=== PATIENT | female | born 2000 | race Caucasian/White ===

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

== ENCOUNTER 2019-08-07 21:51 | Emergency (ER) | payer BC, SELFPAY ==
[2019-08-07 22:23] VITALS: BP 143/98; PULSE 81; RESP 16; TEMP 37.2; O2SAT 99; BMI 33.6
--- NOTE | 2019-08-07 22:30 | XR_ITS ---
PROCEDURE: XR ANKLE RT MIN 3V CLINICAL INDICATION: injured ankle Posttraumatic pain with swelling COMPARISON: No exams were available for comparison FINDINGS: Soft tissue swelling is present along the lateral malleolus. No fracture or dislocation. No lytic or blastic change. There is some soft tissue swelling anteriorly as well IMPRESSION: Soft tissue swelling otherwise negative Dictated by: Jaison Rogers MD 08/08/2019 06:35 Electronically signed by Jaison Rogers MD in [place] 08/08/2019 06:35
--- NOTE | 2019-08-07 22:54 | HMH.EDLOEX ---
ED Disposition Clinical Impression: Ankle sprain and strain Disposition: Home, Self-Care Condition on Discharge: Good Instructions: DI for Ankle Sprain Additional Instructions: no wt bearing and use nsaif and call dr hernadez on friday Referrals: Ilya Harman MD [Primary Care Provider] - Lizzy Hernadez DPM [Staff Physician] - - Critical Care Critical Care Time: No Attestation: On 08/07/19, the high probability of a clinically significant, sudden or life threatening deterioration of the following system(s) required my full and direct attention, intervention and personal management. The time I documented below is in addition to time spent performing reported procedures but includes the following listed in this critical care notation. Medical Decision Making - Medical Records Medical records reviewed: Yes: I reviewed the patient's medical records. - [place] Inquiry Pt receiving controlled substance: No Vital Signs: 08/07/19 22:23 Temperature 99.0 F Temperature Source Oral Pulse Rate [Left Radial] 81 Respiratory Rate 16 Blood Pressure [Right Arm] 143/98 H Blood Pressure Mean [Right Arm] 113 Blood Pressure Source [Right Arm] Automatic Cuff Blood Pressure Position [Right Arm] Sitting 02 Sat by Pulse Oximetry 99 Oxygen Delivery Method Room Air Orders (Tests/Meds): ORDERS Category Date Time Status Ankle XR -Right minimum 3 Views [XR ankle RT min 3V] Exams 08/07/19 22:30 Taken Stat - Radiology Data #1 Image(s): Ankle Image Reviewed: Yes I reviewed the patient's radiology image Preliminary Findings: Abnormal, No Fracture Seen Lower Extremity Injury HPI - General Chief Complaint: Extremity Injury, Lower Stated Complaint: AO 0530@2000 Injured R ankle Time Seen by Provider: 08/07/19 22:40 Mode of Arrival: Ambulatory Source of Information: Patient, Spouse, Medical Record Limitations: No Limitations Description of Symptoms (Recalled from ER Triage Doc. by RN): pt stated she rolled her right ankle getting in the pool. pt c/o right ankle pain and swelling present. - History of Present Illness HPI Narrative: acute rt ankle injury as noted - in pool slide complaint: ankle injury Onset (ago): hour(s) Injury: Right: ankle Type of Injury: hyperflexion Place: home Severity: moderate Context: other (sliding ) Associated symptoms: able to partially bear weight Other symptoms: none - Related Data Home Medications Medication Instructions Recorded Confirmed flu vac qs 2018(4 yr up)CD(PF) IM #1 ml 02/15/19 02/15/19 hepatitis A virus vaccine (PF) IM #1 ml 02/15/19 02/15/19 1,440 KB unit/mL intramuscular syringe Previous Rx's Medication Instructions Recorded levonorgestrel-ethinyl estradiol 1 tab PO DAILY #84 tab 11/17/18 0.1 mg-20 mcg tablet citalopram 10 mg tablet 10 mg PO DAILY #90 tab 02/11/19 norgestimate 0.25 mg-ethinyl 1 tab PO DAILY #84 tab 03/09/19 estradiol 35 mcg tablet oseltamivir 75 mg capsule 75 mg PO BID #10 cap 03/28/19 Allergies Allergy/AdvReac Type Severity Reaction Status Date / Time cefdinir Allergy Verified 02/15/19 15:46 [facility] History - Hepatitis A Screen Drug use history?: No High risk sexual behaviors?: No History of sexually transmitted infection?: No Currently employed?: No Childcare worker?: No Do you have indoor plumbing?: Yes Do you have electricity?: Yes Attestation statement:: This patient has been screened for Hepatitis A risk factors. I have reviewed the patient's past medical history: Yes 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: Reports:: Anxiety Laterality Cases: Left: Other Other Surgeries: Yes: Colonoscopy, Other Amputation: No Fractures: No - Social History Smoking Status: Never smoker Alcohol Intake: never Occupational Status: employed - Psychiatric History Pschychiatric History:: Reports:: Anxiety Family Hx:: No significant family history ROS Obtained: Yes All systems reviewed & no additional complaints - Co
[2019-08-07 23:12] VITALS: BP 137/81; PULSE 75; RESP 16; TEMP 37.3; O2SAT 98
== END 2019-08-07 23:13 | disposition home or self-care (01) ==
PROVIDERS: Emergency Provider Emergency Medicine; PCP Family Medicine
DX: S93.401A Sprain of unspecified ligament of right ankle, initial encounter (principal); X50.1XXA Overexertion from prolonged static or awkward postures, initial encounter; Y92.016 Swimming-pool in single-family (private) house or garden as the place of occurrence of the external cause; F41.9 Anxiety disorder, unspecified
CPT/HCPCS: 73610; 99282

== ENCOUNTER → 2020-11-21 14:53 | Outpatient (CLI) | payer OTHER, BC, SELFPAY | PROVIDERS: PCP Family Medicine; Visit Provider Nurse Practitioner | DX: U07.1 COVID-19 (principal) | CPT/HCPCS: C9803; U0003; U0005 ==

== ENCOUNTER 2022-01-02 18:54 | Emergency (ER) | payer OTHER, SELFPAY ==
[2022-01-02 19:50] VITALS: BP 128/81; PULSE 65; RESP 18; TEMP 36.7; O2SAT 100; BMI 22.3
--- NOTE | 2022-01-02 19:54 | EXP.UTC ---
Discharge Plan Disposition Patient Disposition: Home, Self-Care Condition: Good Prescriptions Prescriptions: New amoxicillin [amoxicillin] 500 mg tablet 500 mg PO TID 10 Days Qty: 30 0RF methylprednisolone 4 mg Tablets,Dose Pack 4 mg PO DIRECTED Qty: 21 0RF bxrkcpuhejchyjz-fbthljocy-DA [Bromfed DM] 2-30-10 mg/5 mL Syrup 5 ml PO Q6H PRN (Reason: Cough) Qty: 240 0RF No Action flu vac qs 2018(4 yr up)CD(PF) 60 mcg (15 mcg x 4)/0.5 mL syringe IM Qty: 1 hepatitis A virus vaccine (PF) 1,440 KB unit/mL syringe IM Qty: 1 oseltamivir [Tamiflu] 75 mg capsule 75 mg PO BID Qty: 10 0RF levonorgestrel-ethinyl estrad [Larissia] 0.1-20 mg-mcg tablet 1 tab PO DAILY Qty: 84 4RF citalopram 10 mg tablet 10 mg PO DAILY Qty: 90 3RF nitrofurantoin monohyd/m-cryst [Macrobid] 100 mg capsule 100 mg PO BID 30 Days Qty: 60 0RF Rx Instructions: must administer with a meal/food phenazopyridine [Pyridium] 100 mg tablet 100 mg PO TID 3 Days Qty: 9 0RF norgestimate-ethinyl estradiol [Sprintec (28)] 0.25-35 mg-mcg tablet See Rx Instructions .ROUTE .COMPLEX Qty: 84 3RF Dose Instruction: TAKE 1 TABLET BY MOUTH EVERY DAY Rx Instructions: TAKE 1 TABLET BY MOUTH EVERY DAY Referrals Follow up/Referrals: Brooke Jay APRN [Primary Care Provider] - See instructions Activity Restrictions/Add. Instructions Additional Instructions/Restrictions: Drink plenty of fluids. Take tylenol or ibuprofen for pain or fever. Take the medications as directed. Follow up with your regular doctor. GO TO THE ER FOR ANY WORSENING SYMPTOMS Clinical Impressions Clinical Impression: Otitis media, Sinusitis Instructions Patient Instructions: Sinusitis, Middle Ear Infection, DI for Sinusitis Discharge ED [place] [facility] [place] General Stated complaint: LEFT EAR ACHE, RUNNY NOSE Mode of Arrival: Ambulatory Source of Information: Patient Limitations: No Limitations Time Seen by Provider: 01/02/22 19:54 Description of Symptoms (Recalled from Triage Doc. by RN): pt c/o left ear pain and sinus pain x2 days HEENT Symptoms (Recalled from RN notes): Yes Resp Symptoms (Recalled from RN notes): No Skin Symptoms (Recalled from RN notes): No MS Symptoms (Recalled from RN notes): No Functional Status (Recalled from RN notes): na History of Present Illness Provider Complaint: She states that she has had left ear pain, sore throat and sinus congestion for the past 2 days. Related Data Home Medications Medication Instructions Recorded Confirmed flu vac qs 2018(4 yr up)CD(PF) 60 IM #1 mL 02/15/19 02/15/19 mcg(15 mcgx4)/0.5 mL IM syringe hepatitis A virus vaccine (PF) IM #1 mL 02/15/19 02/15/19 1,440 KB unit/mL intramuscular syringe Previous Rx's Medication Instructions Recorded levonorgestrel-ethinyl estradiol 1 tab PO DAILY #84 tabs 11/17/18 0.1 mg-20 mcg tablet (Larissia) citalopram 10 mg tablet 10 mg PO DAILY #90 tabs 02/11/19 oseltamivir 75 mg capsule (Tamiflu) 75 mg PO BID positive influenza B 03/28/19 #10 caps nitrofurantoin 100 mg PO BID 30 days #60 caps 09/06/19 monohydrate/macrocrystals 100 mg capsule (Macrobid) phenazopyridine 100 mg tablet 100 mg PO TID 3 days #9 tabs 09/08/19 (Pyridium) norgestimate 0.25 mg-ethinyl See Rx Instructions .Route 12/25/20 estradiol 35 mcg tablet (Sprintec .COMPLEX #84 tabs (28)) amoxicillin 500 mg tablet 500 mg PO TID 10 days #30 tabs 01/02/22 lpwbspxkjivcvzk-mvbizoadkiztflg-RQ 5 ml PO Q6H PRN Cough #240 mL 01/02/22 2 mg-30 mg-10 mg/5 mL oral syrup (Bromfed DM) methylprednisolone 4 mg tablets in 4 mg PO DIRECTED #21 tabs 01/02/22 a dose pack Allergies Allergy/AdvReac Type Severity Reaction Status Date / Time cefdinir Allergy Verified 02/15/19 15:46 Worker's Comp Is this a Worker's Comp case?: No PFSH PFSH Social History (Reviewed 01/02/22 @ 21:04 by Prince Gordillo,
[2022-01-02 20:07] VITALS: BP 121/70; PULSE 68; RESP 17; TEMP 36.7; O2SAT 99
== END 2022-01-02 20:07 | disposition home or self-care (01) ==
PROVIDERS: Emergency Provider Nurse Practitioner Family; PCP Nurse Practitioner
DX: H66.90 Otitis media, unspecified, unspecified ear (principal); J32.9 Chronic sinusitis, unspecified
CPT/HCPCS: 99212; G0463

== ENCOUNTER → 2022-07-16 09:47 | Outpatient (POV) | payer OTHER, SELFPAY | PROVIDERS: Visit Provider Dermatology | DX: Z00.00 Encounter for general adult medical examination without abnormal findings (principal) ==

== ENCOUNTER 2023-02-01 07:12 | Emergency (ER) | payer OTHER, SELFPAY ==
[2023-02-01 07:14] VITALS: BP 119/85; PULSE 100; RESP 15; TEMP 36.9; O2SAT 100; BMI 21.4
[2023-02-01 07:30] VITALS: BP 134/90; PULSE 96; O2SAT 100
--- NOTE | 2023-02-01 07:33 | HMH.EDGENADL ---
Discharge Plan Disposition Patient Disposition: Home, Self-Care Prescriptions Prescriptions: New ondansetron 4 mg tablet,disintegrating 4 mg PO Q6H PRN (Reason: nausea and vomiting) Qty: 10 0RF metoclopramide HCl [Reglan] 10 mg tablet 10 mg PO Q6H PRN (Reason: nausea and vomiting) Qty: 20 0RF No Action flu vac qs 2018(4 yr up)CD(PF) 60 mcg (15 mcg x 4)/0.5 mL syringe IM Qty: 1 hepatitis A virus vaccine (PF) 1,440 KB unit/mL syringe IM Qty: 1 oseltamivir [Tamiflu] 75 mg capsule 75 mg PO BID Qty: 10 0RF levonorgestrel-ethinyl estrad [Larissia] 0.1-20 mg-mcg tablet 1 tab PO DAILY Qty: 84 4RF citalopram 10 mg tablet 10 mg PO DAILY Qty: 90 3RF nitrofurantoin monohyd/m-cryst [Macrobid] 100 mg capsule 100 mg PO BID 30 Days Qty: 60 0RF Rx Instructions: must administer with a meal/food phenazopyridine [Pyridium] 100 mg tablet 100 mg PO TID 3 Days Qty: 9 0RF norgestimate-ethinyl estradiol [Sprintec (28)] 0.25-35 mg-mcg tablet See Rx Instructions .ROUTE .COMPLEX Qty: 84 3RF Dose Instruction: TAKE 1 TABLET BY MOUTH EVERY DAY Rx Instructions: TAKE 1 TABLET BY MOUTH EVERY DAY cephalexin 500 mg capsule 500 mg PO TID 10 Days Qty: 30 0RF amoxicillin [amoxicillin] 500 mg tablet 500 mg PO TID 10 Days Qty: 30 0RF methylprednisolone 4 mg Tablets,Dose Pack 4 mg PO DIRECTED Qty: 21 0RF hjnqqwfqglvsoig-sbjknvbou-BE [Bromfed DM] 2-30-10 mg/5 mL Syrup 5 ml PO Q6H PRN (Reason: Cough) Qty: 240 0RF Referrals Follow up/Referrals: Provider,Referral, MD [Primary Care Provider] - See instructions Activity Restrictions/Add. Instructions Additional Instructions/Restrictions: Reglan or Zofran every 6 hours as needed for nausea and vomiting. Start with Reglan, if you are unable to keep it down and vomited up, you can place Zofran under your tongue. Call your family doctor to establish care for this visit to the emergency department and schedule follow-up within 48 hours to ensure improvement. If you have any worsening of your condition or any other concerning signs or symptoms, return to the emergency department or your primary care doctor for further evaluation. Clinical Impressions Clinical Impression: Hyperemesis gravidarum Instructions Patient Instructions: DI for Acute Abdominal Pain Discharge ED Provider: Jose Bravo General Adult HPI General Chief complaint: Abdominal Pain Stated complaint: abd pain Time Seen by Provider: 02/01/23 07:17 Mode of Arrival: Ambulatory Source of Information: Patient Limitations: No Limitations Description of Symptoms (Recalled from ER Triage Doc. by RN): 22 yo F presents with generalized abd pain. pt reports that she is 10 weeks , 1 prior live . pt reports pain began last night. vomitting yellow bile. History of Present Illness HPI narrative: 22-year-old G2, P1 female with history of previous hemorrhage necessitating transfusion with resultant hematologic antibodies who is currently 10 weeks presenting with abdominal pain and vomiting. Patient states that she has been vomiting since yesterday evening, 01/31. Gotten worse today, she is vomiting yellow, frothy vomit. No blood in her vomit. She has had 1 episode of diarrhea this morning. Having associated abdominal pain and bloating. No fevers or chills, dysuria hematuria, frequency urgency, blood in her stool, rash, vaginal discharge, bleeding, rashes of fluid, or any other concerns. Has not taken any medications for intervention. Related Data Home Medications Medication Instructions Recorded Confirmed flu vac qs 2018(4 yr up)CD(PF) 60 IM #1 mL 02/15/19 02/15/19 mcg(15 mcgx4)/0.5 mL IM syringe hepatitis A virus vaccine (PF) IM #1 mL 02/15/19 02/15/19 1,440 KB unit/mL intramuscular syringe Previous Rx's Medication Instructions Recorded levonorgestrel-ethinyl estradiol 1 tab PO DAILY #84 tabs
[2023-02-01 07:37] LABS: Microscopic, Urine URINE MICROSCOPIC (MICROSCOPIC)
[2023-02-01 07:44] LABS: Basophils % 0.2 % (0.1-2.0); Eosinophils # 0.1 K/mm3 (0.0-0.4); Eosinophils % 0.4 % (0.1-12.0); Hematocrit 43.7 % (37.0-47.0); Hemoglobin 15.6 g/dL (12.2-16.2); Lymphocytes # 1.6 K/mm3 (0.7-4.5); Lymphocytes % 14.1 % (10-50); Mean Corpuscular HGB Conc 35.7 g/dL (31.8-35.4); Mean Corpuscular Hemoglobin 31.9 pg (27.0-31.2); Mean Corpuscular Volume 89.5 fl (81-99); Mean Platelet Volume 7.6 fl (7.4-10.4); Monocytes # 0.3 K/mm3 (0.1-1.0); Monocytes % 2.5 % (1.7-9.3); Neutrophils # 9.2 K/mm3 (1.8-7.8); Neutrophils % 82.8 % (37.0-80.0); Platelet Count 228 K/mm3 (142-424); Red Blood Count 4.88 M/mm3 (4.20-5.40); Red Cell Distribution Width 13.6 % (11.5-17.5); White Blood Count 11.2 K/mm3 (4.8-10.8)
[2023-02-01 07:47] LABS: Appearance,Urine SL CLOUDY (Clear); Bilirubin,Urine Negative (Negative); Blood, Urine Negative (Negative); Color,Urine YELLOW (Yellow); Glucose,Urine (UA) Negative (Negative); Ketones,Urine Negative (Negative); Leukocyte Esterase,Urine Negative (Negative); Nitrate,Urine Negative (Negative); PH,Urine 5.5 (5.0-8.5); Protein,Urine TRACE (Negative); Specific Gravity, Urine >= 1.030 (1.005-1.030); Urobilinogen,Urine 0.2 EU/dl (0.2)
[2023-02-01 07:49] LABS: Lipase 37 U/L (23-300)
[2023-02-01 07:51] LABS: Alanine Aminotransferase 19 U/L (12-78); Albumin Level 4.6 g/dl (3.5-5.0); Albumin/Globulin Ratio 1.4 (1.1-1.8); Alkaline Phosphatase 84 U/L (38-126); Anion Gap 13.2 mEq/L (5-15); Aspartate Amino Transferase 30 U/L (14-36); Bilirubin,Total 2.2 mg/dl (0.2-1.3); Blood Urea Nitrogen 8 mg/dl (7-17); Carbon Dioxide 25 mmol/L (22.0-30.0); Chloride 101 mmol/L (98-107); Creatinine Clearance Estimated 157 mL/min (50-200); Estimated Glomerular Filt Rate 153 ml/min (>60); GFR (African American) 185 ML/MIN (>60); Globulin 3.3 g/dL (1.3-3.2); Glucose 107 mg/dl (74-100); Potassium 4.2 mmoL/L (3.5-5.1); Sodium 135 mmol/L (136-145); Total Protein,Serum 7.9 g/dl (6.3-8.2)
[2023-02-01 08:00] VITALS: BP 116/79; PULSE 88; O2SAT 100
[2023-02-01 08:02] LABS: Squamous Epithelial Cell,Urine Occasional #/hpf (0-5); WBC,Urine Occasional #/hpf (0-3)
[2023-02-01 08:30] VITALS: BP 139/100; PULSE 90; O2SAT 99
[2023-02-01 08:46] VITALS: BP 115/78; PULSE 90; RESP 16; TEMP 36.9; O2SAT 100
== END 2023-02-01 08:47 | disposition home or self-care (01) ==
PROVIDERS: Emergency Provider Emergency Medicine
DX: O21.0 Mild hyperemesis gravidarum (principal); R10.9 Unspecified abdominal pain; Z3A.10 10 weeks gestation of pregnancy
CPT/HCPCS: 80053; 81001; 83690; 84702; 85025; 96361; 96374; 99284

== ENCOUNTER 2023-02-12 09:21 | Emergency (ER) | payer OTHER, SELFPAY ==
[2023-02-12 09:25] VITALS: BP 122/68; PULSE 106; RESP 18; TEMP 37.1; O2SAT 100; BMI 21.6
--- NOTE | 2023-02-12 09:35 | EXP.UTC ---
Discharge Plan Disposition Patient Disposition: Home, Self-Care Condition: Good Prescriptions Prescriptions: No Action 1 mg Tablet 1 tab PO DAILY Referrals Follow up/Referrals: Provider,Referral, MD [Primary Care Provider] - See instructions Activity Restrictions/Add. Instructions Additional Instructions/Restrictions: Drink plenty of fluids. Take tylenol for pain or fever. Follow up with your regular doctor. 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 Clinical Impressions Clinical Impression: COVID-19 Stand Alone Forms Stand Alone Forms: Work/School Release Instructions Patient Instructions: Coronavirus Disease 2019, Preventing the Spread of Coronavirus Discharge Instructions Discharge ED Provider: Prince Gordillo [facility] [place] HPI General Stated complaint: fever, chills, body aches, x 2 weeks Time Seen by Provider: 02/12/23 09:35 History of Present Illness Provider Complaint: She states that for the past 2 weeks she has had chills, low grade fever, and body aches. She is 11 weeks . She denies any congestion. She did have a sore throat at first when her symptoms started. She took a round of amoxicillin when her symptoms first started, but this did not help. Related Data Home Medications Medication Instructions Recorded Confirmed yzttnvad-ghi-Pc-FA 1 mg 1 tab PO DAILY 02/12/23 02/12/23 tablet Allergies Allergy/AdvReac Type Severity Reaction Status Date / Time cefdinir Allergy Verified 02/12/23 09:45 [facility] Disclaimer: The information contained in this section may have been updated after the patient was seen, as this information can be updated by other users. 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 (Updated 02/12/23 @ 10:28 by Prince Gordillo APRN) Sore throat Social History Smoking Status: Never smoker alcohol intake: never current occupational status: employed Travel in the last 8 weeks: None ROS Obtained: Yes All systems reviewed & no additional complaints except as documented Constitutional Constitutional: Reports chills and Reports fever(s) Eyes Eyes: Denies eye discharge ENT Ears, Nose, Mouth, and Throat: Reports as per HPI Cardiovascular Cardiovascular: Denies chest pain Respiratory Respiratory: Denies chest congestion and Reports cough Gastrointestinal Gastrointestingal: Reports nausea; Denies abdominal pain, constipation, cramping, diarrhea or vomiting Musculoskeletal Musculoskeletal: Denies arthralgias Integumentary/Breasts Skin/Breast: Denies rash Neurologic Neurologic: Denies paresthesias Physical Exam General General appearance: alert and in no apparent distress Head Head exam: atraumatic, normocephalic and normal inspection Eye Eye exam: Present normal appearance, PERRL and EOMI ENT ENT exam: Present normal exam, normal oropharynx, mucous membranes moist, TM's normal bilaterally and normal external ear exam Neck Neck exam: Present normal inspection, full ROM and trachea midline; Absent meningismus or lymphadenopathy Chest Chest inspection: Present normal inspection and symmetric chest wall rise; Absent tenderness Respiratory Respiratory exam: Present normal lung sounds bilaterally; Absent respiratory distress Cardiovascular Cardiovascular exam: Present regular rate and normal rhythm; Absent JVD Abdominal Exam Abdominal exam: Present soft and normal bowel sounds; Absent distention, tenderness or guarding Extremities Exam Extremities exam: Present normal inspection, full ROM and normal capillary refill; Absent calf tenderness Back Exam Back exam: Present normal inspection; Absent tenderness Neurological Exam Neurological exam: Present alert and oriented X3 Psychiatric Psychiatric exam: Present normal affect and normal mood Skin Skin exam: Present warm, dry, intact and normal color Lymphatic Lymphatic Findings: no adenopathy Medical Deci
[2023-02-12 09:40] LABS: Influenza A, PCR Not Detected (NotDetected); Influenza B, PCR Not Detected (NotDetected)
[2023-02-12 09:47] LABS: UTC Strep Screen (Rapid) Negative (Negative)
[2023-02-12 10:24] LABS: Coronavirus 19, PCR Detected (NotDetected)
[2023-02-12 10:30] VITALS: BP 122/68; PULSE 106; RESP 18; TEMP 37.1; O2SAT 100
[2023-02-12 10:34] LABS: Apearance,Urine Clear (Clear); Color,Urine Yellow (Yellow); Protein,Urine Negative (Negative); Specific Gravity, Urine 1.015 (1.005-1.030)
[2023-02-12 10:35] LABS: Glucose,Urine (UA) Negative (Negative); Ketones,Urine Negative (Negative)
[2023-02-12 10:37] LABS: Bilirubin,Urine Negative (Negative); Blood, Urine 1+ (Negative); UTC Leukocyte Esterase,Urine Negative (Negative); UTC Nitrate,Urine Negative (Negative); Urobilinogen,Urine 0.2 EU/dl (0.2)
[2023-02-12 10:50] LABS: Chloride 101 mmol/L (98-107)
[2023-02-12 10:51] LABS: Basophils % 0.2 % (0.1-2.0); Eosinophils % 0.4 % (0.1-12.0); Hematocrit 36.8 % (37.0-47.0); Hemoglobin 13.1 g/dL (12.2-16.2); Lymphocytes # 0.8 K/mm3 (0.7-4.5); Lymphocytes % 16.1 % (10-50); Mean Corpuscular HGB Conc 35.6 g/dL (31.8-35.4); Mean Corpuscular Hemoglobin 32.1 pg (27.0-31.2); Mean Corpuscular Volume 90.2 fl (81-99); Mean Platelet Volume 7.4 fl (7.4-10.4); Monocytes # 0.2 K/mm3 (0.1-1.0); Monocytes % 3.7 % (1.7-9.3); Neutrophils # 3.9 K/mm3 (1.8-7.8); Neutrophils % 79.6 % (37.0-80.0); Platelet Count 219 K/mm3 (142-424); Potassium 3.7 mmoL/L (3.5-5.1); Red Blood Count 4.08 M/mm3 (4.20-5.40); Red Cell Distribution Width 14.2 % (11.5-17.5); Sodium 133 mmol/L (136-145); White Blood Count 4.9 K/mm3 (4.8-10.8)
[2023-02-12 10:53] LABS: Blood Urea Nitrogen 4 mg/dl (7-17); Creatinine Clearance Estimated 197 mL/min (50-200); Estimated Glomerular Filt Rate 198 ml/min (>60); GFR (African American) 239 ML/MIN (>60)
[2023-02-12 10:54] LABS: Anion Gap 10.7 mEq/L (5-15); Calcium 8.6 mg/dl (8.4-10.2); Carbon Dioxide 25 mmol/L (22.0-30.0); Glucose 104 mg/dl (74-100); Monoscreen (Rapid) Negative (Negative)
== END 2023-02-12 10:30 | disposition home or self-care (01) ==
PROVIDERS: Emergency Provider Nurse Practitioner Family
DX: O98.511 Other viral diseases complicating pregnancy, first trimester (principal); U07.1 COVID-19; Z3A.11 11 weeks gestation of pregnancy; R50.9 Fever, unspecified; R05.9 Cough, unspecified; R11.0 Nausea; M79.18 Myalgia, other site
CPT/HCPCS: 80048; 81003; 85025; 86318; 87086; 87636; 87880; 99212; 99213; G0463

== ENCOUNTER 2024-01-07 14:11 | Outpatient (CLI) | payer OTHER, SELFPAY ==
[2024-01-07 14:32] LABS: Basophils # 0.1 K/mm3 (0-0.2); Basophils % 1.2 % (0.1-2.0); Eosinophils # 0.1 K/mm3 (0.0-0.4); Eosinophils % 1.5 % (0.1-12.0); Hemoglobin 13.8 g/dL (12.2-16.2); Lymphocytes # 2.5 K/mm3 (0.7-4.5); Lymphocytes % 45.9 % (10-50); Mean Corpuscular HGB Conc 35.5 g/dL (31.8-35.4); Mean Corpuscular Hemoglobin 30.8 pg (27.0-31.2); Mean Corpuscular Volume 86.9 fl (81-99); Mean Platelet Volume 7.7 fl (7.4-10.4); Monocytes # 0.2 K/mm3 (0.1-1.0); Monocytes % 4.2 % (1.7-9.3); Neutrophils # 2.5 K/mm3 (1.8-7.8); Neutrophils % 47.2 % (37.0-80.0); Platelet Count 220 K/mm3 (142-424); Red Blood Count 4.48 M/mm3 (4.20-5.40); Red Cell Distribution Width 13.4 % (11.5-17.5); White Blood Count 5.3 K/mm3 (4.8-10.8)
[2024-01-07 14:51] LABS: D-Dimer 0.44 ug/mL (0.0-0.5)
[2024-01-07 15:03] LABS: Anion Gap 9.7 mEq/L (5-15); Blood Urea Nitrogen 11 mg/dl (7-17); Calcium 9.2 mg/dl (8.4-10.2); Carbon Dioxide 29 mmol/L (22.0-30.0); Chloride 105 mmol/L (98-107); Estimated Glomerular Filt Rate 103 ml/min (>60); GFR (African American) 124 ML/MIN (>60); Glucose 80 mg/dl (74-100); Potassium 3.7 mmoL/L (3.5-5.1); Sodium 140 mmol/L (136-145)
[2024-01-07 15:34] LABS: Thyroid Stimulating Hormone 1.04 uIU/mL (0.465-4.68)
[2024-01-07 18:05] LABS: Iron 78 ug/dL (37-170)
[2024-01-07 18:15] LABS: Total Iron Binding Capacity 420 ug/dL (265-497)
[2024-01-07 18:42] LABS: Ferritin 23.1 ng/ml (6.24-137)
[2024-01-09 17:33] LABS: Antinuclear Antibodies, IFA Negative (.)
[2024-01-12 10:10] LABS: Dopamine, Plasma < 30 pg/mL (0-48); Epinephrine, Plasma < 15 pg/mL (0-62); Norepinephrine, Plasma 446 pg/mL (0-874)
== END 2024-01-07 23:59 | disposition home or self-care (01) ==
LOC: LAB 14:12
PROVIDERS: PCP Internal Medicine; Visit Provider Internal Medicine
DX: I47.11 Inappropriate sinus tachycardia, so stated (principal); R06.00 Dyspnea, unspecified; R42 Dizziness and giddiness
CPT/HCPCS: 80048; 82384; 82728; 83520; 83540; 83550; 84439; 84443; 84540; 85025; 85378; 86038; 93270

== ENCOUNTER 2024-01-09 06:54 | Outpatient (CLI) | payer OTHER, SELFPAY | END 2024-01-09 23:59 | disposition home or self-care (01) | LOC: LAB 06:55 | PROVIDERS: PCP Internal Medicine; Visit Provider Internal Medicine | DX: I47.11 Inappropriate sinus tachycardia, so stated (principal); R06.00 Dyspnea, unspecified; R42 Dizziness and giddiness | CPT/HCPCS: 36415; 82533 ==

== ENCOUNTER 2024-01-15 13:25 | Outpatient (CLI) | payer OTHER, SELFPAY ==
--- NOTE | 2024-01-15 13:47 | CA_ITS ---
APPROVED REPORT EXAM: Comprehensive 2D, Doppler, and color-flow Echocardiogram District Director: Jaclyn Vance CRT Ht: 5 ft 4 in Wt: 135lbs BSA: 1.66 BP: 118/84 mmHg Indications: SVT, SOB, DIZZINESS Echo Enhancing Agent Indication: Rule out Shunt Agent(s) / Amount(s) Used: Agitated Saline 5 cc Comments: B/S ORDERED 2D Dimensions LA Volume 42.10 mL LA Volume Index 24.80 mL/m2 (M/F) 16-34 M-Mode Dimensions RVDd 1.86 cm (0.9-2.6) LA Diam 2.61 cm (1.9-4.0) LVDd 4.44 cm (3.5-5.7) LVDs 2.72 cm (3.5-5.7) IVSd 0.98 cm (0.6-1.1) PWd 0.71 cm (0.6-1.1) EF (Teich) 69.30% FS 38.70% EDV (Teich) 89.60 mL TAPSE 2.25 (<1.7) ESV (Teich) 27.50 mL LV Diastology E Decel Time 217 (160-240 msec) E/A Ratio 1.34 MED A' 8.40 cm/s LAT A' 9.40 cm/s Aortic Valve AO Peak GR. 8.50 mmHg Mitral Valve MV A Velocity 69.0 (40-130 cm/s) E/A Ratio 1.34 Pulmonary Valve PV Peak Velocity 152.0 (50-150 cm/s) Tricuspid Valve TR P. Velocity 214.00 cm/s RAP Estimate 10.00 mmHg RVSP 28.30 mmHg Left Ventricle The left ventricle is normal size. The left ventricular systolic function is normal. The left ventricular ejection fraction is within the normal range. There is normal left ventricular wall thickness. There is normal LV segmental wall motion. The left ventricular diastolic function is normal. LVEF is 55%. Right Ventricle The right ventricle is normal size. The right ventricular systolic function is normal. Atria The left atrium size is normal. The right atrium size is normal. There is no Doppler evidence of interatrial shunt. Agitated saline administration demonstrates no evidence of interatrial shunt. Aortic Valve The aortic valve opens well. There is no aortic valvular stenosis. No aortic regurgitation is present. Mitral Valve The mitral valve is normal in structure. No evidence of mitral valve stenosis. Trace mitral regurgitation. Tricuspid Valve Tricuspid valve is grossly normal in structure and function. Trace tricuspid regurgitation. RVSP is normal. Pulmonic Valve The pulmonary valve is normal in structure. Trace pulmonic regurgitation. Great Vessels The aortic root is normal in size. IVC is normal in size and collapses >50% with inspiration. Pericardium There is no pericardial effusion. Other Information Study Quality: Adequate Conclusion Normal biventricular systolic function. No significant valvular stenosis or regurgitation. No Doppler evidence of interatrial shunt. Agitated saline administration demonstrates no evidence of interatrial shunt. Electronically signed by : Paula Gandara MD 01/18/2024 21:35:04
== END 2024-01-15 23:59 | disposition home or self-care (01) ==
LOC: RT 13:25
PROVIDERS: PCP Internal Medicine; Visit Provider Internal Medicine
DX: R06.00 Dyspnea, unspecified (principal); I47.11 Inappropriate sinus tachycardia, so stated
CPT/HCPCS: 93306

== ENCOUNTER 2024-01-29 13:37 | Outpatient (CLI) | payer OTHER, SELFPAY ==
[2024-01-29 13:02] LABS: Adenovirus,PCR Not Detected (NotDetected); Bordetella Pertussis Not Detected (NotDetected); Chlamydophila Pneumoniae, PCR Not Detected (NotDetected); Coronavirus 19, PCR Not Detected (NotDetected); Coronavirus 229E Not Detected (NotDetected); Coronavirus NL63 Not Detected (NotDetected); Coronavirus OC43 Not Detected (NotDetected); Coronovirus HKU1,PCR Not Detected (NotDetected); Human Metapneumovirus Not Detected (NotDetected); Influenza A, PCR Not Detected (NotDetected); Influenza AH1, 2009 Not Detected (NotDetected); Influenza AH1, PCR Not Detected (NotDetected); Influenza AH3,PCR Not Detected (NotDetected); Influenza B, PCR Not Detected (NotDetected); Mycoplasma Pneumoniae, PCR Not Detected (NotDetected); Parainfluenza 1, PCR Not Detected (NotDetected); Parainfluenza 2, PCR Not Detected (NotDetected); Parainfluenza 3, PCR Not Detected (NotDetected); Parainfluenza 4, PCR Not Detected (NotDetected); Respiratory Syncytial Virus Not Detected (NotDetected); Rhinovirus/Enterovirus Not Detected (NotDetected)
[2024-01-29 13:25] LABS: Basophils # 0.1 K/mm3 (0-0.2); Basophils % 1.1 % (0.1-2.0); Eosinophils # 0.3 K/mm3 (0.0-0.4); Eosinophils % 4.8 % (0.1-12.0); Hematocrit 40.7 % (37.0-47.0); Hemoglobin 13.8 g/dL (12.2-16.2); Lymphocytes # 2.6 K/mm3 (0.7-4.5); Lymphocytes % 45.5 % (10-50); Mean Corpuscular Hemoglobin 30.4 pg (27.0-31.2); Mean Corpuscular Volume 89.2 fl (81-99); Mean Platelet Volume 7.7 fl (7.4-10.4); Monocytes # 0.2 K/mm3 (0.1-1.0); Monocytes % 3.8 % (1.7-9.3); Neutrophils # 2.5 K/mm3 (1.8-7.8); Neutrophils % 44.8 % (37.0-80.0); Platelet Count 195 K/mm3 (142-424); Red Blood Count 4.56 M/mm3 (4.20-5.40); Red Cell Distribution Width 13.7 % (11.5-17.5); White Blood Count 5.7 K/mm3 (4.8-10.8)
== END 2024-01-29 23:59 | disposition home or self-care (01) ==
LOC: LAB.DROPOF 13:37
PROVIDERS: PCP Internal Medicine; Visit Provider Internal Medicine
DX: J98.8 Other specified respiratory disorders (principal)
CPT/HCPCS: 85025; 87633

== ENCOUNTER 2024-02-24 08:26 | Outpatient (CLI) | payer OTHER, SELFPAY ==
--- NOTE | 2024-02-24 08:30 | XR_ITS ---
FINAL REPORT CLINICAL HISTORY: Foot Pain, hit in between 4th & 5th digit on fireplace FINDINGS: Left foot Three views were obtained. There is an oblique, mildly displaced comminuted fracture of the fourth proximal phalanx. There is no dislocation. Fracture extends into the PIP joint. IMPRESSION: Fracture as above. Reviewed, Interpreted and Dictated by Semaj Sinha MD Transcribed by Vianey Nina Authenticated and [facility]
== END 2024-02-24 23:59 | disposition home or self-care (01) ==
LOC: RAD 08:27
PROVIDERS: PCP Internal Medicine; Visit Provider Podiatrist
DX: M79.672 Pain in left foot (principal)
CPT/HCPCS: 73630

== ENCOUNTER 2024-03-22 13:57 | Outpatient (CLI) | payer OTHER, SELFPAY ==
--- NOTE | 2024-03-22 14:00 | XR_ITS ---
FINAL REPORT CLINICAL HISTORY: fracture healing evaluation COMPARISON: 02/24/2024 FINDINGS: LEFT FOOT: 3 views of the left foot rupture of the fourth proximal phalanx, also seen on the prior exam of 02/24/2024. The fracture line remains evident without displacement. There is mild fracture healing, and minimal periosteal reaction. IMPRESSION: Mild fracture healing of the oblique fracture of the fourth proximal phalanx since the prior exam of 02/24/2024. Reviewed, Interpreted and Dictated by Semaj Sinha MD Transcribed by Kat Gonsales Authenticated and [facility]
== END 2024-03-22 23:59 | disposition home or self-care (01) ==
LOC: RAD 13:58
PROVIDERS: PCP Internal Medicine; Visit Provider Podiatrist
DX: S92.345A Nondisplaced fracture of fourth metatarsal bone, left foot, initial encounter for closed fracture (principal); S92.502A Displaced unspecified fracture of left lesser toe(s), initial encounter for closed fracture
CPT/HCPCS: 73630

== ENCOUNTER 2024-04-03 08:18 | Emergency (ER) | payer OTHER, SELFPAY ==
[2024-04-03 08:41] VITALS: BP 128/68; PULSE 93; RESP 18; TEMP 36.8; O2SAT 97; BMI 23.5
[2024-04-03 08:46] LABS: UTC Strep Screen (Rapid) Negative (Negative)
--- NOTE | 2024-04-03 08:52 | EXP.UTC ---
Discharge Plan Disposition Patient Disposition: Home, Self-Care Condition: Good Prescriptions Prescriptions: New amoxicillin 500 mg tablet 500 mg PO BID 10 Days Qty: 20 0RF No Action norgestimate-ethinyl estradiol [Sprintec (28)] 0.25-35 mg-mcg tablet 1 tab PO DAILY Patient Comments: TAKE 1 TABLET BY MOUTH ONCE DAILY Referrals Follow up/Referrals: Olegario Ahmadi, [Primary Care Provider] - See instructions Activity Restrictions/Add. Instructions Additional Instructions/Restrictions: Start antibiotic as soon as possible and be sure to take as ordered for full length of time even though he should start feeling better in 24-48 hours. Tylenol or Motrin as needed for pain or fever Encourage fluids, water, Gatorade, Powerade, Pedialyte if infant/toddler/child Warm compresses often helps when placed over ear Return immediately for new or worsening symptoms no noticeable improvement in 48-72 hours and in 10-14 days to ensure the ears are return to baseline. Follow-up with primary care Clinical Impressions Clinical Impression: Otitis media, Upper respiratory infection, viral Instructions Patient Instructions: DI for Viral Upper Respiratory Infection -- Adult, Middle Ear Infection Print Language Print Language: Egyptian Discharge ED Provider: Archana ([facility])Britany [facility] HPI General Stated complaint: Pain in R ear and throat Mode of Arrival: Ambulatory Source of Information: Patient Time Seen by Provider: 04/03/24 08:52 Description of Symptoms (Recalled from Triage Doc. by RN): EAR ACHE, SORE THROAT, DRAINAGE X3 DAYS HEENT Symptoms (Recalled from RN notes): Yes Resp Symptoms (Recalled from RN notes): No Skin Symptoms (Recalled from RN notes): No MS Symptoms (Recalled from RN notes): No Functional Status (Recalled from RN notes): WNL History of Present Illness Provider Complaint: 23-year-old female presents for right ear pain, sore throat, and drainage for 3 days. Related Data Home Medications ?Medication ?Instructions ?Recorded ?Confirmed norgestimate 0.25 mg-ethinyl 1 tab PO DAILY 01/07/24 04/03/24 estradiol 35 mcg tablet (Sprintec (28)) Previous Rx's ?Medication ?Instructions ?Recorded amoxicillin 500 mg tablet 500 mg PO BID 10 days #20 tabs 04/03/24 Allergies Allergy/AdvReac Type Severity Reaction Status Date / Time cefdinir Allergy Verified 03/23/24 08:52 Worker's Comp Is this a Worker's Comp case?: No [facility] Disclaimer: The information contained in this section may have been updated after the patient was seen, as this information can be updated by other users. 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) Smoking Status: Never smoker alcohol intake: never current occupational status: employed Travel in the last 8 weeks: None Have you lived/traveled outside US in past 30 days?: No Contact w/someone who lives/traveled outside US past 30 days?: No Exposure to someone with infectious disease in past 14 days?: No Do you have a fever (greater than 100.4 F or 38 C)?: No Have you tested positive for COVID-19: No Exposed to someone with COVID-19 in past 14 days?: No Do you have a sore throat?: Yes Do you have a cough?: No Do you have any weakness?: No Do you have any diarrhea?: No Are you experiencing any unusual bleeding?: No Do you have any muscle aches/pain?: No Do you have any abdominal pain?: No Are you experiencing loss of taste or smell?: No ROS Obtained: Yes Systems reviewed as appropriate & no additional complaints except as documented ENT Ears, Nose, Mouth, and Throat: Reports system reviewed and no additional complaints, except as documented, Reports as per HPI, Reports otalgia, Reports nasal discharge and Reports sore throat Physical Exam General General appearance: alert and in no apparent distress ENT ENT exam: Present normal oropharynx and mucous membranes moist Expanded ENT Exam TM/Canal exam: Right TM: erythema and loss of landmarks Respiratory Respiratory exam: Present normal lung sounds bilaterally Cardiovascular Cardiovascular exam: Present regular rate and normal rhythm Neurological Exam Neurological exam: Present alert and oriented X3 Skin Skin exam: Present warm and intact Lymphatic Lymphatic Findings: no adenopathy Medical Decision Making Medical Records Medical records reviewed: Yes I reviewed the patient's medical records. Screening: Per USPSTF and CDC recommendations, given the prevalence of disease in our region, it is our hospital?s policy to screen for HIV and viral Hepatitis for all patients aged 18 and over and those with ongoing risk factors. Francisco Inquiry Pt receiving controlled substance: No Vital Signs: 04/03/24 08:41 Temperature 98.2 F Temperature Source Oral Pulse Rate [Left Radial] 93 H Respiratory Rate 18 Blood Pressure [Left Arm] 128/68 Blood Pressure Mean [Left Arm] 88 02 Sat by Pulse Oximetry 97 Lab Data Lab results reviewed: Yes I reviewed the patient's lab results. Lab Results 04/03/24 08:38: Strep Scn Rapid Clinic Negative Orders (Tests/Meds): ORDERS Category Date Time Status Strep Screen Confirmation Stat Micro 04/03/24 08:38 Received
[2024-04-03 09:08] VITALS: BP 128/68; PULSE 93; RESP 18; TEMP 36.8
== END 2024-04-03 09:25 | disposition home or self-care (01) ==
PROVIDERS: Emergency Provider Nurse Practitioner Family; PCP Internal Medicine
DX: H66.91 Otitis media, unspecified, right ear (principal); J06.9 Acute upper respiratory infection, unspecified
CPT/HCPCS: 87880; 99213; G0381

== ENCOUNTER 2024-04-12 13:43 | Outpatient (CLI) | payer OTHER, SELFPAY ==
--- NOTE | 2024-04-12 13:45 | XR_ITS ---
FINAL REPORT CLINICAL HISTORY: Foot Pain COMPARISON: 03/22/2024 FINDINGS: LEFT FOOT Three views demonstrate a mildly displaced oblique fracture of the fourth proximal phalange, similar to the previous study allowing for differences in positioning. There is no evidence of intra-articular extension. IMPRESSION: Similar-appearing fourth proximal phalange fracture. Reviewed, Interpreted and Dictated by Alfa Gutiérrez MD Transcribed by Billie Lema Authenticated and . [facility]
== END 2024-04-12 23:59 | disposition home or self-care (01) ==
LOC: RAD 13:43
PROVIDERS: PCP Internal Medicine; Visit Provider Podiatrist
DX: M79.672 Pain in left foot (principal)
CPT/HCPCS: 73630

== ENCOUNTER 2024-12-07 04:02 | Emergency (ER) | payer OTHER, SELFPAY ==
--- OUTSIDE RECORDS SUMMARY | 2024-10-20 14:40 | XMS_ITS | Encounter Summary ---
[facility] [address] [place] [address] Care Team Providers Care Crab Backer Name Role Phone Olegario Ahmadi Primary Care Provider + Reason for Visit * Reason Comments annual Encounter Details Date Type Department Care Team (Late st Contact Info) Description 10/20/2024 2:40 PM EDT Office Visit [facility] OBGYN [address] [place] [address] Lauren Mcleod MD [address] [place] [address] Women's annual routine gynecological examination (Primary Dx); Encounter for contraceptive management, unspecified type Social History Tobacco Use Types Packs/Day Years Used Date Smoking Tobacco: Never Passive Smoke Exposure: Past Smokeless Tobacco: Never Tobacco Cessation:Counseling Given: Not Answered Alcohol Use Standard Drinks/Week Comments Never 0 (1 standard drink = 0.6 oz pur e alcohol) [facility] Utilities Answer Date Recorded In the past 12 months has [place], gas, oil, or water independenceIT threatened to shut off services in your home? No 08/27/2023 AUDIT-C Answer Date Recorded Q1: How often do you have a drink containing alcohol? Never 08/27/2023 Q2: How many drinks containi ng alcohol do you have on a typical day when you are drinking? Patient does not drink Q3: How often do you have si x or more drinks on one occasion? Never 08/27/2023 Overall Financial Resource Strain (CARDIA) Answe r Date Recorded How hard is it for you to pa y for the very basics like food, housing, medical care, and heating? Not hard at all 08/27/2023 [facility] of Occupat ional Health - Occupational Stress Questionnaire Answer Date Recorded Do you feel stress - tense, restless, nervous, or anxious, or unable to sleep at night because your mind is troubled all the time - these days? Not at all 08/27/2023 Exercise Vital Sign Answer Date Recorde d On average, how many days pe r week do you engage in moderate to strenuous exercise (like a brisk walk)? 3 days 08/27/2023 On average, how many minutes do you engage in exercise at this level? 20 min 08/27/2023 Hunger Vital Sign Answer Date Recorded Within the past 12 months, y ou worried that your food would run out before you got the money to buy more. Never true 08/27/19 24 Within the past 12 months, t he food you bought just didn't last and you didn't have money to get more. Never true 08/27/2023 PRAPARE - Transportation Answer Date Re corded In the past 12 months, has l ack of transportation kept you from medical appointments or from getting medications? No 08/08 In the past 12 months, has l ack of transportation kept you from meetings, work, or from getting things needed for daily living? No 08/27/2023 Robbins Depression Scale Answer Date Recorded Retired Robbins Depression Score 17 10/13/2023 Retired EPD Scale: Thought of Harming Self Unrec ognized value 10/13/2023 Abuse Screen Answer Date Recorded Feels Unsafe at Home or Work/School no 08/27/2023 Feels Threatened by Someone no 08/08 Does Anyone Try to Keep You From Having Contact with Others or Doing Things Outside Your Home? no 08/27/2023 Physical Signs of Abuse Present no 08/27/2023 Housing Stability Answer Date Recorded Current Living Arrangements home 08/08 Potentially Unsafe Housing Conditions none 08/27/2023 Family and Community Support Answer Ernesto e Recorded If for any reason you need h elp with day-to-day activities such as bathing, preparing meals, shopping, managing finances, etc., do you get the help you need? I don't need any help 08/27/2023 How often do you feel lonely or isolated from those around you? Never 08/27/2023 Employment Answer Date Recorded Do you want help finding or keeping work or a job? I do not need or want help 08/27/2023 Disabilities Answer Date Recorded Difficulty Concentrating, Remembering or Making Decisions no 08/27/2023 Difficulty Managing Errands Independently no 08/27/2023 Education Answer Date Recorded Do you want help with school or training? For example, starting or completing job training or getting a high school diploma, GED or equivalent No 08/27/2023 Preferred Language Wolof 08/27/2023 PHQ-2 Answer Date Recorded Retired PHQ-9: Brief Depression Severity Measure Score 0 08/27/2023 Education Answer Date Recorded What is the highest level of school you have completed or the highest degree you have received? 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 Gynecologic Annual Exam Note annual Subjective HPI Kaylynn Mcarthur is a 24 y.o. female who presents for annual well woman exam as a established patient. There were no changes to her medical or surgical history since her last visit.. Patient's last menstrual period was 10/04/2024 (approximate). Her periods occur every 25-35 days, lasting 5 days. The flow is light to moderate. She reports dysmenorrhea is mild occurring occasionally. Marital Status: . She is sexually active. She has not had new partners.. STD testing recommendations have been explained to the patient and she does not desire STD testing. 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 Results: negative. HPV: not done. Last Completed Pap Smear Awaiting Completion PAP SMEAR (Every 3 Years) Order placed this encounter 10/20/2024 Order placed for LIQUID-BASED PAP SMEAR WITH HPV GENOTYPING REGARDLESS OF INTERPRETATION(ELSY,COR,MAD) by Lauren Mcleod MD 10/15/2023 LIQUID-BASED PAP SMEAR WITH HPV GENOTYPING IF ASCUS (ELSY,COR,MAD) 08/14/2022 LIQUID-BASED PAP SMEAR WITH HPV GENOTYPING IF ASCUS (ELSY,COR,MAD) 12/01/2020 Pap IG, Ct-Ng, Rfx HPV ASCU History of abnormal Pap smear: no Gardasil status:completed Family history of uterine, colon, breast, or ovarian cancer: no Performs monthly Self-Breast Exam: yes Exercises Regularly:yes Feelings of Anxiety or Depression: no Tobacco Usage?: No Current Outpatient Medications: norgestimate-ethinyl estradiol (ORTHO-CYCLEN) 0.25-35 MG-MCG per tablet, Take 1 tablet by mouth Daily., Disp: 84 tablet, Rfl: 4 Patient is requesting refills of OCP. OB History 2 Para 2 Term 2 0 AB 0 Living 2 SAB 0 IAB 0 Ectopic 0 Molar 0 Multiple 0 Live Births 2 Obstetric Comments #1 Vaginal wall hematoma-bleeding- had blood transfusion post hematoma evacuation Fob #1 - #1 and #2 Health Maintenance Topic Date Due ANNUAL PHYSICAL Never done Annual Gynecologic Pelvic and Breast Exam 08/16/2023 COVID-19 Vaccine ( season) 2023 INFLUENZA VACCINE 12/08/2024 PAP SMEAR 10/14/2026 TDAP/TD VACCINES (3 - Td or Tdap) 06/09/2033 HEPATITIS C SCREENING Completed HPV VACCINES Completed Pneumococcal Vaccine 0-49 Aged Out CHLAMYDIA SCREENING Discontinued Past 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: Diagnosis Date History of transfusion 06-27-22 Post hemorrhage Maternal atypical antibody complicating , unspecified trimester, 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 Review of Systems Constitutional: Negative. HENT: Negative. Eyes: Negative. Respiratory: Negative. Cardiovascular: Negative. Gastrointestinal: Negative. Endocrine: Negative. Genitourinary: Negative. Musculoskeletal: Negative. Skin: Negative. Allergic/Immunologic: Negative. Neurological: Positive for headache. Hematological: Negative. Psychiatric/Behavioral: Negative. I have reviewed and agree with the HPI, ROS, and historical information as entered above. Lauren Mcleod MD Objective BP 118/80 Ht 162.6 cm (64 ) Wt 60.3 kg (133 lb) LMP 10/04/2024 (Approximate) BMI 22.83 kg/m?? Physical Exam Vitals and nursing note reviewed. Exam conducted with a duck farmer present. Constitutional: Appearance: She is well-developed. HENT: Head: Normocephalic and atraumatic. Eyes: Pupils: Pupils are equal, round, and reactive to light. Neck: Thyroid: No thyroid mass or thyromegaly. Pulmonary: Effort: Pulmonary effort is normal. No retractions. Chest: Chest wall: No mass. Breasts: Right: Normal. No mass, nipple discharge, skin change or tenderness. Left: Normal. No mass, nipple discharge, skin change or tenderness. Abdominal: General: Bowel sounds are normal. Palpations: Abdomen is soft. Abdomen is not rigid. There is no mass. Tenderness: There is no abdominal tenderness. There is no guarding. Hernia: No hernia is present. There is no hernia in the left inguinal area or right inguinal area. Genitourinary: Exam position: Lithotomy position. Pubic Area: No rash. Labia: Right: No rash, tenderness or lesion. Left: No rash, tenderness or lesion. Urethra: No urethral pain or urethral swelling. Vagina: Normal. No vaginal discharge or lesions. Cervix: No cervical motion tenderness, discharge, lesion or cervical bleeding. Uterus: Normal. Not enlarged, not fixed and not tender. Adnexa: Right: No mass, tenderness or fullness. Left: No mass, tenderness or fullness. Rectum: No external hemorrhoid. Musculoskeletal: Cervical back: Normal range of motion. No muscular tenderness. Right lower leg: No edema. Left lower leg: No edema. Skin: General: Skin is warm and dry. Neurological: Mental Status: She is alert and oriented to person, place, and time. Motor: Motor function is intact. Psychiatric: Mood and Affect: Mood and affect normal. Behavior: Behavior normal. 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 She is considering stopping her ocps for 3 months, using condoms, to see if any changes with her headaches. She has been on same jl for long time. They are considering another baby in the next year or so. Reviewed pap guidelines. OCP's/Vaginal Ring - Discussed side effects of nausea, BTB, headaches, breast tenderness and slightweight gain in the first three cycles. Understands risks of blood clots, stroke, and theoretical risk of breast cancer. Denies family history of blood clots. Reviewed monthly self breast exams. Instructed to call with lumps, pain, or breast discharge. Reviewed exercise as a preventative health measures. Return in about 1 year (around 10/20/2025) for Annual physical. Lauren Mcleod MD 10/20/2024 documented in this encounter Plan of Treatment Upcoming Encounters Date Type Department Care Team (Late st Contact Info) Description 10/26/2025 4:00 PM EDT Office Visit [facility] [place] [address] Luaren Mcleod MD [address] [facility] [address] [place], [place] [id number] documented as of this encounter Procedures Procedure Name Priority Date/Time Associated Diagnosis Comments LIQUID-BASED PAP SMEAR WITH HPV GENOTYPING REGARDLESS OF INTERPRETATION, [facility] (ELSY,COR,MAD) Routine 10/20/2024 3:11 PM EDT Encounter for contraceptive management, unspecified type documented in this encounter Results * LIQUID-BASED PAP SMEAR WITH HPV GENOTYPING REGARDLESS OF INTERPRETATION (ELSY,COR,MAD) (10/20/2024 3:11 PM EDT) Reference Lab Report FINAL ELECTROMECHANICAL INSPECTOR CYTOLOGY REPORT ---- DIAGNOSIS: Negative for intraepithelial lesion or malignancy Multiple factors can influence accuracy of Pap tests; therefore, screening at regular intervals is necessary for early cancer detection. C-Comments FUNGAL ORGANISMS MORPHOLOGICALLY CONSISTENT WITH JACQUIE SPECIES ARE PRESENT. Benign cellular changes associated with infection are present. ---- Adequacy SATISFACTORY FOR EVALUATION Transformation zone is present. Source CERVICAL/ENDOCERVI ZAFAR LMP None provided CLINICAL HISTORY: Routine Encounter for contraceptive management, unspecified The pap smear is a screening test with limited sensitivity, and false negative tests results can occur. ThinPrep Pap imagined by Task Messenger (AI assisted system). Screened by PRUDENCE BURGESS (ASCP) Aptima HPV: Negative The Aptima HPV assay is an in vitro nucleic acid amplification test for the qualitative detection of E6/E7 viral messenger RNA from 14 high risk types of HPV in cervical specimens. The high risk HPV types detected include: 16, 18, 31, 33, 35, 39, 45, 51, 52, 56, 58, 59, 66 68 10/22/2024 10:30 AM EDT [facility] ThinPrep Vial Collection / Unknown 10/20/2024 3:11 PM EDT 10/20/2024 3:11 PM EDT Lauren Mcleod MD PATHOLOGY/CYTOLOGY ORDERABLES Fi nal Result [facility]
[address] [place] [address], documented in this encounter Visit Diagnoses Diagnosis Encounter for contraceptive management, unspecified type documented in this encounter Care Teams Crab Backer Relationship Specialty Start Date End Date Olegario Ahmadi DO [address] [facility] [address] [place] [address] PCP - General 10/13/24 documented as of this encounter
--- OUTSIDE RECORDS SUMMARY | 2024-12-07 04:10 | XMS_ITS | Encounter Summary ---
[facility] [address] [place] [address] Care Team Providers Care Account Manager Trainee Name Role Phone Radha Ahmadiew Jonathon Primary Care Provider + Encounter Details Date Type Department Care Team (Latest Contact Info) Description 10/20/2024 Travel Social History Tobacco Use Types Packs/Day Years Used Date Smoking Tobacco: Never Passive Smoke Exposure: Past Smokeless Tobacco: Never Alcohol Use Standard Drinks/Week Comments Never 0 (1 standard drink = 0.6 oz pur e alcohol) [facility] Utilities Answer Date Recorded In the past 12 months has [employer] electric, gas, oil, or water [employer] threatened to shut off services in your [...] and heating? Not hard at all 08/27/2023 [facility] of Occupat ional Health - Occupational Stress [...] things needed for daily living? No 08/27/2023 Magn[place] Depression Scale Answer Date Recorded Retired [place] Depression Score 17 10/13/2023 Retired EPD Scale: [...] GED or equivalent No 08/27/2023 Preferred Language Paraguayan 08/27/2023 PHQ-2 Answer Date Recorded Retired PHQ-9: [...] on file documented as of this encounter Plan of Treatment Upcoming Encounters Date Type Department Care Team (Late st Contact Info) Description 10/26/2025 4:00 PM EDT Office Visit [facility] OBGYN [address] [place] [address] Lauren Mcleod MD [address] [facility] [address] [place], [place] [id number] documented as of this encounter Visit Diagnoses Not on filedocumented in this encounter Care Teams Account Manager Trainee Relationship Specialty Start Date End Date Olegario Ahmadi DO [address] [place] [address] PCP - General 10/13/24 documented as of this encounter
--- OUTSIDE RECORDS SUMMARY | 2024-12-07 04:10 | XMS_ITS | Clinical Summary ---
Author Organization [facility] Address [address] [place] [address] Care Team Providers Care Full Time Staff Interpreter Name Role Phone GaldinoOlegario Jonathon Primary Care Provider + Allergies Active Allergy Reactions Criticality Noted Date Comments Cefdinir Angioedema High 11/29/2020 Medications norgestimate-ethin yl estradiol (ORTHO-CYCLEN) 0.25-35 MG-MCG per tabletIndications: Encounter for contraceptive management, unspecified type Take 1 tablet by mouth Daily. 84 tablet 4 Active Active Problems Problem Noted Date Diagnosed Date Tachycardia 11/29/2020 Overview (10/20/2024): On bisoprolol in past Cards Dr Dubose, Assessment & Plan (04/15/2023 3:49 PM EST): Currently on metoprolol. We will need to closely monitor growth. Plan for growth in 8 weeks. Resolved Problems Problem Noted Date Diagnosed Date Resolved Date Marginal placenta previa 04/15/202309/2023 Overview (06/10/2023): 06/10/23 resolved Assessment & Plan (06/10/2023 3:08 PM EDT): Patient returns today for follow-up with placenta previa is being seen previously. Patient reports no complications in the intervening weeks and reports good movement. Ultrasound today demonstrates a normally grown fetus with no abnormality seen. In particular amniotic fluid volume and umbilical artery Dopplers are normal. Posterior placenta is no longer previa it is well away from the internal os. No alterations in obstetric care are indicated based on placental location now. Patient was counseled extensively regarding movement will contact her provider immediately if she notices any decreased movement. Assessment & Plan (04/15/2023 3:48 PM EST): 0.9 cm from os posteriorly. Plan for repeat evaluation in 8 weeks. 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 PDC- MCA dopplers not needed. Type and cross at delivery Assessment & Plan (04/15/2023 3:47 PM EST): Anticalin antibodies English antibodies. Father the baby tested negative for both antigens. MCA Dopplers are not warranted given pressured paternity. Today's anatomy ultrasound overall appears normal. No evidence of hydrops MCAs normal today. Plan for follow-up growth and evaluation of placenta in 8 weeks Assessment & Plan (03/18/2023 4:26 PM EST): FOB now known to be [place] and English (Fya) antigen negative (results in Epic). Reviewed these findings in detail with the patient and her partner. Discussed the importance of known paternity. They voice understanding. Serial MCA doppler assessment not indicated. I do recommend type and cross of PRBCs upon admission to the hospital however due to potentially prolonged cross match. 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 These antibodies has been associated with hemolytic disease of the fetus and (HDFN). The next step would be to test FOB for the antigens present and their zygosity if they are found. If his tests return negative antigen status and paternity is assured, then no further evaluation is needed as the fetus must also be negative for the antigens discussed. If [place] and English is found to be positive or the paternity is doubted, the fetus is considered to be at risk for HDFN and further testing is needed. Alternatively, amniocytes could be obtained to determine the blood type and antigen status if the father is found to be heterozygous for the antigen in question. Early gestational age relays a low risk of anemia and the 3rd trimester is when the majority of erythroblastosis occurs. Evaluation should consist of Doppler of the middle cerebral artery. Should concern for anemia be present due to elevated MCA peak systolic velocity, transfusion may be required versus delivery, depending on gestational age. We did discuss the ~10% false positive risk for anemia using MCA Dopplers. Recommendations: 1.) Screen FOB for presence of [place] and English antigen status and zygosity. FOB agreeable to testing today. 2.) If FOB's antigen status is positive: will start MCA screening at 16 weeks. 01/22/2023 10/15/2023 Overview (03/18/2023): Prev term 7#15oz PP vaginal sidewall hematoma requiring repair in OR, 3uprbc cfDNA low risk Normal labor 06/27/2021 06/29/2021 11/29/2020 06/29/2021 Overview (05/23/2021): cfDNA low risk EFW 34 wks 57%ile Encounters Date Type Department Care Team Description 10/20/2024 2:40 PM EDT Office Visit [facility] [address] [place] [address] Lauren Mcleod MD Women's annual routine gynecological examination (Primary Dx); Encounter for contraceptive management, unspecified type 10/20/2024 Travel 09/09/2024 Telephone [facility] [address] [facility] [address] [place] [address] Lauren Mcleod MD from Last 3 Months Immunizations Immunization Administration Dates Next Due Tdap 06/10/2023,04/11/2021 Family History 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 Relation Name Comments Breast cancer Neg Hx Colon cancer Neg Hx Ovarian cancer Neg Hx Uterine cancer Neg Hx Social History Tobacco Use Types Packs/Day Years Used Date Smoking Tobacco: Never Passive Smoke Exposure: Past Smokeless Tobacco: Never Tobacco Cessation:Counseling Given: Not Answered Alcohol Use Standard Drinks/Week Comments Never 0 (1 standard drink = 0.6 oz pur e alcohol) [facility] Utilities Answer Date Recorded In the past 12 months has th e [employer], gas, oil, or water [employer] threatened to shut off services in your [...] and heating? Not hard at all 08/27/2023 [facility] - Occupational Stress [...] things needed for daily living? No 08/27/2023 [place] Depression Scale Answer Date Recorded Retired [place] Depression Score 17 10/13/2023 Retired EPD Scale: [...] GED or equivalent No 08/27/2023 Preferred Language Maldivian 08/27/2023 PHQ-2 Answer Date Recorded Retired PHQ-9: [...] file Not on file Not on file Last Filed Vital Signs Vital Sign Reading Time Taken Comments Blood Pressure 118/80 10/20/2024 2:53 PM EDT Pulse 88 08/30/2023 9:10 AM EDT Temperature 36.9 C (98.5 F) 08/30/2023 9:10 AM EDT Respiratory Rate 18 08/30/2023 9:10 AM EDT Oxygen Saturation 98% 08/28/2023 1:02 AM EDT Inhaled Oxygen Concentration - - Weight 60.3 kg (133 lb) 10/20/2024 2:53 PM EDT Height 162.6 cm (5' 4 ) 10/20/2024 2:53 PM EDT Body Mass Index 22.83 10/20/2024 2:53 PM EDT Plan of Treatment Upcoming Encounters Date Type Department Care Team (Late st Contact Info) Description 10/26/2025 4:00 PM EDT Office Visit [facility] [address] [place] [address] Lauren Mcleod MD [address] [address] Health Maintenance Due Date Last Done Comments ANNUAL PHYSICAL 11/29/2020 INFLUENZA VACCINE 10/08/2024 12/22/2018, 12/22/2018 Annual Gynecologic Pelvic and Breast Exam 10/21/2025 10/20/2024 PAP SMEAR 10/21/2027 10/20/2024, 09/2023, 08/14/2022, Additional history exists TDAP/TD VACCINES (3 - Td or Tdap) 06/09/2033 06/10/2023, 04/11/2021 Pneumococcal Vaccine 0-49 Aged Out 2009, 10/29/2000, 01/28/2000, Additional history exists No longer eligible based on patient's age to complete this topic HPV VACCINES Completed 05/03/2010, 12/09, 10/31/2009 HEPATITIS C SCREENING Completed 01/22/2023, 021 CHLAMYDIA SCREENING Discontinued 10/20/2024, 10/15/2023, 01/22/2023, Additional history exists Procedures Procedure Name Priority Date/Time Associated Diagnosis Comments LIQUID-BASED PAP SMEAR WITH HPV GENOTYPING REGARDLESS OF INTERPRETATION, [facility] ([facility]) Routine 10/20/2024 3:11 PM EDT Encounter for contraceptive management, unspecified type OBSTETRIC PANEL Routine 01/22/2023 2:07 PM EST Encounter for supervision of other normal in first trimester from Last 3 Months or Most Recently Relevant to Health Maintenance Results * LIQUID-BASED PAP SMEAR WITH HPV GENOTYPING REGARDLESS OF INTERPRETATION (ELSY,COR,MAD) (10/20/2024 3:11 PM EDT) Reference Lab Report [facility]AL [facility]Y REPORT ---- DIAGNOSIS: Negative for intraepithelial [...] results can occur. ThinPrep Pap imagined by [employer] (AI assisted system). Screened by PRUDENCE BURGESS [...] 3:11 PM EDT 10/20/2024 3:11 PM EDT us Lauren Mcleod MD PATHOLOGY/CYTOLOGY ORDERABLES Fi nal Result [facility]
[address] [place] [address], * Obstetric Panel (01/22/2023 2:07 PM EST) Hepatitis B Surface Ag Negative Negative [facility] Hep C Virus Ab Non Reactive Non Reactive [facility] Comment: HCV antibody alone does not differentiate between previously resolved infection and active infection. Equivocal and Reactive HCV antibody results should be followed up with an HCV RNA test to support the diagnosis of active HCV infection. RPR Non Reactive Non Reactive [facility] Rubella Antibodies, IgG 1.76 Immune >0.99 index [facility] Comment: Non-immune <0.90 Equivocal 0.90 - 0.99 Immune >0.99 ABO Type O [facility] Rh Factor Positive [facility] Comment: Please note: Prior records for this patient's ABO / Rh type are not available for additional verification. Antibody Screen See Final Results Negative [facility] WBC 8.5 3.4 - 10.8 x10E3/uL [facility] RBC 4.18 3.77 - 5.28 x10E6/uL [facility] Hemoglobin 12.8 11.1 - 15.9 g/dL [facility] Hematocrit 38.3 34.0 - 46.6 % [facility] MCV 92 79 - 97 fL [facility] MCH 30.6 26.6 - 33.0 pg [facility] MCHC 33.4 31.5 - 35.7 g/dL [facility] RDW 12.6 11.7 - 15.4 % [facility] Platelets 228 150 - 450 x10E3/uL [facility] Neutrophil Rel % 70 Not Estab. % [facility] Lymphocyte Rel % 26 Not Estab. % [facility] Monocyte Rel % 4 Not Estab. % [facility] Eosinophil Rel % 0 Not Estab. % [facility] Basophil Rel % 0 Not Estab. % [facility] Neutrophils Absolute 5.9 1.4 - 7.0 x10E3/uL [facility] Lymphocytes Absolute 2.2 0.7 - 3.1 x10E3/uL [facility] Monocytes Absolute 0.3 0.1 - 0.9 x10E3/uL [facility] Eosinophils Absolute 0.0 0.0 - 0.4 x10E3/uL [facility] Basophils Absolute 0.0 0.0 - 0.2 x10E3/uL [facility] Immature Granulocyte Rel % 0 Not Estab. % [facility] Immature Grans Absolute 0.0 0.0 - 0.1 x10E3/uL [facility] Blood 01/22/2023 2:07 PM EST 01/22/2023 Narrative [facility] ([facility]) - 01/24/2023 6:11 AM EST Performed at: - [facility] [address] [id number] Dampener Operator: Kyler Riley PhD, Phone: [phone] Patient Fasting: N us Lauren Mcleod MD LAB BLOOD ORDERABLES Final Resul t Performing Organization Address City/State/[facility] Co de Phone Number [facility] [employer] (AMBULATORY) [address] [place] [address], [facility] [address] [place] [address], from Last 3 Months or Most Recently Relevant to Health Maintenance Insurance [facility] Advance Directives * CPR (Attempt to Resuscitate) (Latest Code Status on File) Date Activated Date Inactivated Comments 08/28/2023 2:07 PM 08/30/2023 3:23 PM Question Answer Comments Code Status (Patient has no pulse and is not breathing): CPR (Attempt to Resuscitate) Medical Interventions (Patie nt has pulse or is breathing): Full * CPR (Attempt to Resuscitate) Date Activated Date Inactivated Comments 08/27/2023 9:13 PM 08/28/2023 2:07 PM Question Answer Comments Code Status (Patient has no pulse and is not breathing): CPR (Attempt to Resuscitate) Medical Interventions (Patie nt has pulse or is breathing): Full Support Level Of Support Discussed With: Patient * CPR (Attempt to Resuscitate) Date Activated Date Inactivated Comments 06/27/2021 10:06 AM 06/29/2021 1:39 PM Question Answer Comments Code Status (Patient has no pulse and is not breathing): CPR (Attempt to Resuscitate) Medical Interventions (Patie nt has pulse or is breathing): Full * CPR (Attempt to Resuscitate) Date Activated Date Inactivated Comments 06/27/2021 12:38 AM 06/27/2021 10:06 AM Question Answer Comments Code Status (Patient has no pulse and is not breathing): CPR (Attempt to Resuscitate) Medical Interventions (Patie nt has pulse or is breathing): Full Support Level Of Support Discussed With: Patient Care Teams Full Time Staff Interpreter Relationship Specialty Start Date End Date Olegario Ahmadi DO [address] [place] [address] [place] [id number] PCP - General 10/13/24
--- NOTE | 2024-12-07 04:12 | CT_ITS ---
PROCEDURE INFORMATION: Exam: CT Abdomen And Pelvis With Contrast Exam date and time: 12/07/2024 5:01 AM Age: 24 years old Clinical indication: Abdominal pain; Additional info: Rlq pain TECHNIQUE: Imaging protocol: Computed tomography of the abdomen and pelvis with contrast. Radiation optimization: All CT scans at this facility use at least one of these dose optimization techniques: automated exposure control; mA and/or kV adjustment per patient size (includes targeted exams where dose is matched to clinical indication); or iterative reconstruction. Contrast material: ISOVUE; Contrast volume: 75 ml; Contrast route: IV; COMPARISON: No relevant prior studies available. FINDINGS: Liver: Normal. No mass. Gallbladder and biliary ducts: Normal. No calcified stones. No ductal dilation. Pancreas: Normal. No ductal dilation. Spleen: Normal. No splenomegaly. Adrenal glands: Normal. No mass. Kidneys and ureters: Punctate stone right kidney versus early excretion of contrast. Stomach and bowel: Unremarkable. No obstruction. No mucosal thickening. Appendix: No evidence of appendicitis. Intraperitoneal space: Unremarkable. No free air. No significant fluid collection. Vasculature: Unremarkable. No abdominal aortic aneurysm. Lymph nodes: Unremarkable. No enlarged lymph nodes. Urinary bladder: Unremarkable as visualized. Reproductive: Unremarkable as visualized. Bones/joints: Unremarkable. No acute fracture. Soft tissues: Unremarkable. IMPRESSION: No acute findings.
[2024-12-07 04:14] VITALS: BP 133/86; PULSE 93; RESP 16; TEMP 36.8; O2SAT 100; BMI 23.1
--- NOTE | 2024-12-07 04:14 | ED_ITS ---
Discharge Plan Disposition Patient Disposition: Home, Self-Care Condition: Good Prescriptions Prescriptions: No Action norgestimate-ethinyl estradiol [Sprintec (28)] 0.25-35 mg-mcg tablet 1 tab PO DAILY Patient Comments: TAKE 1 TABLET BY MOUTH ONCE DAILY ondansetron 4 mg tablet,disintegrating 4 mg PO Q6H PRN (Reason: nausea and vomiting) Qty: 60 0RF Rx Instructions: 1-2 tablets as needed triamcinolone acetonide 0.5 % cream 1 applic topical BID Qty: 15 0RF Referrals Follow up/Referrals: Olegario Ahmadi DO [Primary Care Provider, Family Practice] - See instructions Activity Restrictions/Add. Instructions Additional Instructions/Restrictions: Please follow-up with your primary care provider. Please return to the emergency department if you develop any new or worsening symptoms or become concerned for your health. Clinical Impressions Clinical Impression: Abdominal pain Qualifiers: Abdominal location: right lower quadrant Qualified Code(s): R10.31 - Right lower quadrant pain Instructions Patient Instructions: DI for Acute Abdominal Pain Print Language Print Language: Chadian Discharge ED Provider: Tyler Saldivar General Adult HPI General Chief complaint: Abdominal Pain Stated complaint: Abdominal Pain; Nausea; Chills Time Seen by Provider: 12/07/24 04:08 History of Present Illness HPI narrative: 24-year-old female without significant past medical history presents for right lower quadrant abdominal pain. She reports that she was feeling nauseous yesterday. Tonight she started having generalized 6 out of 10 abdominal pain that is now localized to the right lower quadrant. It also radiates to the back. She denies any urinary symptoms. Denies any history of abdominal surgery. Has regular bowel movements. Last menstrual period ended recently. Related Data Home Medications ?Medication ?Instructions ?Recorded ?Confirmed norgestimate 0.25 mg-ethinyl 1 tab PO DAILY 01/07/24 0 07/27/24 estradiol 0.035 mg tablet (Sprintec (28)) Previous Rx's ?Medication ?Instructions ?Recorded ondansetron 4 mg disintegrating 4 mg PO Q6H PRN nausea and 07/20/24 tablet vomiting #60 tabs triamcinolone acetonide 0.5 % 1 applic topical BID #15 grams 10/19/24 topical cream Allergies Allergy/AdvReac Type Severity Reaction Status Date / Time cefdinir Allergy Verified 07/27/24 13:08 [facility] Disclaimer: The information contained in this section may have been updated after the patient was seen, as this information can be updated by other users. 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 URI (upper respiratory infection) Respiratory infection Sinusitis Chills Body aches Post-nasal drip Fever High risk sexual behavior COVID-19 Anti-D antibodies present during Tachycardia depression History of Sore throat Social History Smoking Status: Never smoker alcohol intake: never current occupational status: employed Travel in the last 8 weeks?: None Have you lived/traveled outside US in past 30 days?: No Contact w/someone who lives/traveled outside US past 30 days?: No Exposure to someone with infectious disease in past 14 days?: No Do you have a fever (greater than 100.4 F or 38 C)?: No Have you tested positive for COVID-19?: No Exposed to someone with COVID-19 in past 14 days?: No Do you have a sore throat?: No Do you have a cough?: No Do you have any weakness?: No Do you have any diarrhea?: No Are you experiencing any unusual bleeding?: No Do you have any muscle aches/pain?: No Do you have any abdominal pain?: Yes Are you experiencing loss of taste or smell?: No Other 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 Have you received the Flu Vaccine for this season: No Have you received the Pneumonia Vaccine: No ROS Obtained: Yes All systems reviewed & no additional complaints except as documented Physical Exam General General appearance: alert and in no apparent distress Head Head exam: atraumatic and normocephalic Eye Eye exam: Present normal appearance, PERRL and EOMI ENT ENT exam: Present normal oropharynx and normal external ear exam Neck Neck exam: Present normal inspection and full ROM Chest Chest inspection: Present normal inspection and symmetric chest wall rise; Absent tenderness Respiratory Respiratory exam: Present normal lung sounds bilaterally; Absent respiratory distress Cardiovascular Cardiovascular exam: Present regular rate and normal rhythm Abdominal Exam Abdominal exam: Present soft and tenderness (Generalized, worse in the right lower quadrant); Absent distention or guarding Extremities Exam Extremities exam: Present normal inspection; Absent edema or joint swelling Back Exam Back exam: Present normal inspection; Absent tenderness Neurological Exam Neurological exam: Present alert and oriented X3; Absent motor sensory deficit Psychiatric Psychiatric exam: Present normal affect and normal mood Skin Skin exam: Present warm, dry and normal color Lymphatic Lymphatic Findings: no adenopathy Medical Decision Making Medical Records Medical records reviewed: Yes I reviewed the patient's medical records. Screening: Per USPSTF and CDC recommendations, given the prevalence of disease in our region, it is our hospital?s policy to screen for HIV and viral Hepatitis for all patients aged 18 and over and those with ongoing risk factors. Francisco Inquiry Pt receiving controlled substance: No Francisco was queried for this patient: No Vital Signs: 12/07/24 04:14 12/07/24 04:30 12/07/24 05:15 Temperature 98.2 F Temperature Source Oral Pulse Rate 85 Pulse Rate [Right Radial] 93 H Respiratory Rate 16 Blood Pressure 119/83 108/68 L Blood Pressure [Right Arm] 133/86 Blood Pressure Mean 89 Blood Pressure Mean [Right Arm] 101 Blood Pressure Source Blood Pressure Source [Right Arm] Automatic Cuff Blood Pressure Position Blood Pressure Position [Right Arm] Supine 02 Sat by Pulse Oximetry 100 100 Oxygen Delivery Method Room Air 12/07/24 05:30 12/07/24 05:52 12/07/24 05:53 Temperature 97.8 F 98.2 F Temperature Source Oral Pulse Rate 76 86 66 Pulse Rate [Right Radial] Respiratory Rate 17 16 Blood Pressure 107/70 L 107/70 L 107/68 L Blood Pressure [Right Arm] Blood Pressure Mean Blood Pressure Mean [Right Arm] Blood Pressure Source Automatic Cuff Blood Pressure Source [Right Arm] Blood Pressure Position Supine Blood Pressure Position [Right Arm] 02 Sat by Pulse Oximetry 100 Oxygen Delivery Method Room Air Room Air Lab Data Lab results reviewed: Yes I reviewed the patient's lab results. Lab Results 12/07/24 04:25: WBC 7.5, RBC 4.69, Hgb 14.3, Hct 40.4, MCV 86.1, MCH 30.5, MCHC 35.4, RDW 13.0, Plt Count 170, MPV 9.0, Neut % (Auto) 63.6, Lymph % (Auto) 31.6, [place] % (Auto) 3.7, Eos % (Auto) 0.5, Baso % (Auto) 0.3, Neut # (Auto) 4.8, Lymph # (Auto) 2.4, Gila # (Auto) 0.3, Eos # (Auto) 0.0, Baso # (Auto) 0.0, Sodium 137, Potassium 3.6, Chloride 103, Carbon Dioxide 26, Anion Gap 11.6, BUN 10, Creatinine 0.60, Estimated Creat Clear 139, Estimated GFR 122, Est GFR ( Amer) 147, Glucose 114 H, Calcium 9.8, Total Bilirubin 3.4 H, AST 28, ALT 15, Alkaline Phosphatase 95, Total Protein 7.9, Albumin 4.5, Globulin 3.4 H, Albumin/Globulin Ratio 1.3, Lipase 39, Serum HCG, Qual Negative, Urine Color Yellow, Urine Appearance Clear, Urine pH 5.5, Ur Specific [place] >= 1.030, Urine Protein Negative, Urine Glucose (UA) Negative, Urine Ketones Negative, Urine Blood Negative, Urine Nitrate Negative, Urine Bilirubin Negative, Urine Urobilinogen 0.2, Ur Leukocyte Esterase Negative, Urine RBC Occasional, Urine WBC Occasional, Ur Squamous Epith Cells 3-5, Urine Bacteria None 12/07/24 04:25 12/07/24 04:25 Orders (Tests/Meds): ED MEDICATIONS Discontinued Medications Generic Name Dose Route Start Last Admin Trade Name Freq PRN Reason Stop Dose Admin Acetaminophen 1,000 mg 12/07/24 04:12 12/07/24 04:39 Acetaminophen 500mg Tab PO 12/07/24 04:13 1,000 mg ONCE ONE Administration Iopamidol 75 ml 12/07/24 05:05 12/07/24 05:06 Iopamidol-370 (76%);100ml Bottle IV 12/07/24 05:06 75 ml ONCE ONE Administration Morphine Sulfate 4 mg 12/07/24 04:12 12/07/24 04:39 Morphine 4mg/Ml Syringe IV 12/07/24 04:13 4 mg ONCE ONE Administration Ondansetron HCl 4 mg 12/07/24 04:12 12/07/24 04:39 Ondansetron 4mg/2ml Vial IV 12/07/24 04:13 4 mg ONCE ONE Administration Sodium Chloride 10 ml 12/07/24 05:05 12/07/24 05:06 Sodium Chloride 0.9% 10ml Syr (Rad Only) IV 01/06/25 05:04 10 ml NEEDED PRN Administration Maintain IV Site ORDERS Category Date Time Status CT abdomen pelvis w con Stat Cat Scan 12/07/24 04:12 Completed CBC w/Auto Diff [Complete Blood Count Auto Diff] Stat Lab 12/07/24 04:25 Completed CMP [Comprehensive Metabolic Panel] Stat Lab 12/07/24 04:25 Completed HCG Qualitative, Serum Stat Lab 12/07/24 04:25 Completed Lipase Stat Lab 12/07/24 04:25 Completed UA [Urinalysis and Microscopic] Stat Lab 12/07/24 04:25 Completed Medical Decision Narrative: 24-year-old female without significant past medical history presents for nausea and right lower quadrant abdominal pain. History was obtained via interactive discussion with patient, chart review. On arrival, patient is [afebrile, hemodynamically stable, satting appropriately, alert, oriented x4, GCS 15], moving all extremities spontaneously. Full physical exam performed and significant for generalized abdominal tenderness worse in the right lower quadrant Differential includes but is not limited to appendicitis, cholecystitis, gastroenteritis, ovarian pathology. Patient was given Tylenol Zofran morphine for symptomatic management and correction of underlying abnormalities. Workup initiated including CBC CMP beta- hCG lipase urinalysis CT abdomen pelvis with IV contrast. On re-evaluation, patient reports symptomatic improvement Laboratory workup independently interpreted by me and significant for no significant ptosis, negative test, negative lipase. Imaging independently interpreted by me and significant for no evidence of appendicitis, or other significant pathology. See radiology read for full review of final results. Given patient history, exam and workup, patient's presentation most likely represents nausea and abdominal pain. No evidence of appendicitis, cholecystitis, no significant concern for ovarian torsion or other serious pathology at this time. These findings were communicated to patient and she was discharged in stable condition. Return precautions given.. Procedures Risk/Benefits of Procedure(s) Were Explained: Yes Critical Care Critical Care Time Critical Care Time: No
[2024-12-07 04:30] VITALS: BP 119/83
[2024-12-07 04:35] LABS: Bilirubin,Urine Negative (Negative); Color,Urine YELLOW (Yellow); Glucose,Urine (UA) Negative (Negative); Ketones,Urine Negative (Negative); Leukocyte Esterase,Urine Negative (Negative); Microscopic, Urine URINE MICROSCOPIC (MICROSCOPIC); PH,Urine 5.5 (5.0-8.5); Protein,Urine Negative (Negative); Specific Gravity, Urine >= 1.030 (1.005-1.030); Urobilinogen,Urine 0.2 EU/dl (0.2)
[2024-12-07 04:38] LABS: Hematocrit 40.4 % (37.0-47.0); Hemoglobin 14.3 g/dL (12.2-16.2); Immature Granulocytes % 0.3 %; Mean Corpuscular HGB Conc 35.4 g/dL (31.8-35.4); Mean Corpuscular Hemoglobin 30.5 pg (27.0-31.2); Mean Corpuscular Volume 86.1 fl (81-99); Nucleated Red Blood Cells % 0 %; Platelet Count 170 K/mm3 (142-424); Red Blood Count 4.69 M/mm3 (4.20-5.40); Red Cell Distribution Width-SD 40.4 fL; White Blood Count 7.5 K/mm3 (4.8-10.8)
[2024-12-07] MEDS: MORPHINE 4MG/ML SYRINGE 4 MG IV (04:39)
[2024-12-07] MEDS: ACETAMINOPHEN 500MG TAB 1000 MG PO (04:39)
[2024-12-07] MEDS: ONDANSETRON 4MG/2ML VIAL 4 MG IV (04:39)
[2024-12-07 04:42] LABS: Chloride 103 mmol/L (98-107)
[2024-12-07 04:43] LABS: Albumin Level 4.5 g/dl (3.5-5.0); Potassium 3.6 mmoL/L (3.5-5.1); Sodium 137 mmol/L (136-145)
[2024-12-07 04:45] LABS: Alanine Aminotransferase 15 U/L (12-78); Aspartate Amino Transferase 28 U/L (14-36); HCG Qualitative, Serum Negative (Negative)
[2024-12-07 04:46] LABS: Albumin/Globulin Ratio 1.3 (1.1-1.8); Alkaline Phosphatase 95 U/L (38-126); Anion Gap 11.6 mEq/L (5-15); Bilirubin,Total 3.4 mg/dl (0.2-1.3); Calcium 9.8 mg/dl (8.4-10.2); Carbon Dioxide 26 mmol/L (22.0-30.0); Globulin 3.4 g/dL (1.3-3.2); Glucose 114 mg/dl (74-100); Lipase 39 U/L (23-300); Total Protein,Serum 7.9 g/dl (6.3-8.2)
[2024-12-07 04:51] LABS: Blood Urea Nitrogen 10 mg/dl (7-17); Creatinine Clearance Estimated 139 mL/min (50-200); Creatinine,Serum 0.60 mg/dl (0.52-1.04); Estimated Glomerular Filt Rate 122 ml/min (>60); GFR (African American) 147 ML/MIN (>60)
[2024-12-07 04:52] LABS: RBC,Urine Occasional #/hpf (0-3); WBC,Urine Occasional #/hpf (0-3)
[2024-12-07] MEDS: SODIUM CHLORIDE 0.9% 10ML SYR (RAD ONLY) 10 ML IV (05:06)
[2024-12-07] MEDS: IOPAMIDOL-370 (76%);100ML BOTTLE 75 ML IV (05:06)
[2024-12-07 05:15] VITALS: BP 108/68; PULSE 85; O2SAT 100
[2024-12-07 05:30] VITALS: BP 107/70; PULSE 76; O2SAT 100
[2024-12-07 05:52] VITALS: BP 107/70; PULSE 86; RESP 17; TEMP 36.6; O2SAT 96
[2024-12-07 05:53] VITALS: BP 107/68; PULSE 66; RESP 16; TEMP 36.8; O2SAT 100
== END 2024-12-07 06:03 | disposition home or self-care (01) ==
PROVIDERS: Emergency Provider Emergency Medicine; PCP Internal Medicine
DX: R10.31 Right lower quadrant pain (principal); R11.0 Nausea
CPT/HCPCS: 74177; 80053; 81001; 83690; 84703; 85025; 96374; 96375; 99285; J2270; J2405; Q9967

== ENCOUNTER 2025-01-28 06:57 | Outpatient (CLI) | payer OTHER, SELFPAY ==
--- OUTSIDE RECORDS SUMMARY | 2025-01-28 07:00 | XMS_ITS | Clinical Summary ---
Author Organization [facility] Address [address] [place] [address] Care Team Providers Care Scrap Preparer Name Role Phone Olegario Ahmadi DO Primary Care Provider + Allergies Active Allergy Reactions Criticality Noted Date Comments Cefdinir Angioedema High 11/29/2020 Medications norgestimate-ethin yl estradiol (ORTHO-CYCLEN) 0.25-35 MG-MCG per tabletIndications: Encounter for contraceptive management, unspecified type Take 1 tablet by mouth Daily. 84 tablet 4 5 Active Active Problems Problem Noted Date Diagnosed [...] PM EST): FOB now known to be [place] and [place] (Fya) antigen negative (results in [...] be negative for the antigens discussed. If [place] and [place] is found to be positive [...] Recommendations: 1.) Screen FOB for presence of [place] and [place] antigen status and zygosity. FOB agreeable to testing today. 2.) If FOB's antigen status is positive: will start MCA screening at 16 weeks. 01/22/2023 10/15/2023 Overview (03/18/2023): Prev term 7#15oz PP vaginal sidewall hematoma requiring repair in OR, 3uprbc cfDNA low risk Normal labor 06/27/2021 06/29/2021 11/29/2020 06/29/2021 Overview (05/23/2021): cfDNA low risk EFW 34 wks 57%ile Immunizations Immunization Administration Dates Next Due Tdap [...] drink = 0.6 oz pur e alcohol) [facility] Utilities Answer Date Recorded In the past 12 months has e [employer], gas, oil, or water [employer] threatened to shut off services in your [...] and heating? Not hard at all 08/27/2023 [facility] - Occupational Stress [...] things needed for daily living? No 08/27/2023 [place] Depression Scale Answer Date Recorded [place] Depression Scale Total 17 10/13/2023 The thought of harming myself has occurred to me . Unrecognized value 10/13/2023 Abuse Screen Answer Date Recorded [...] GED or equivalent No 08/27/2023 Preferred Language Japanese 08/27/2023 PHQ-2 Answer Date Recorded Retired PHQ-9: [...] Description 10/26/2025 4:00 PM EDT Office Visit [facility] [address] [place] [address] Lauren Mcleod MD [address] [facility] [address] [place] [address] Health Maintenance Due Date Last Done Comments [...] 3:11 PM EDT) Reference Lab Report [facility]AL [facility] CYTOLOGY REPORT ---- DIAGNOSIS: Negative for intraepithelial [...] results can occur. ThinPrep Pap imagined by Pre[employer]iser (AI assisted system). Screened by PRUDENCE BURGESS [...] Result [facility]
[address] [place] [address], * Obstetric Panel (01/22/2023 2:07 PM EST) [...] 6:11 AM EST Performed at: - [facility] [address], [place], [place] [id number] Wallpaper Cleaner: Kyler Riley PhD, Phone: [phone] Patient Fasting: N us Lauren Mcleod MD LAB BLOOD ORDERABLES Final Resul t [facility] [address] [place] [address], [facility] [address] [place] [address], from Last 3 Months or Most Recently Relevant to Health Maintenance Insurance R Advance Directives * CPR (Attempt to Resuscitate) [...] Of Support Discussed With: Patient Care Teams Scrap Preparer Relationship Specialty Start Date End Date Olegario Ahmadi DO [address] [place] [address] [place] [id number] PCP - General 10/13/24
== END 2025-01-28 23:59 | disposition home or self-care (01) ==
LOC: LAB 06:58
PROVIDERS: PCP Internal Medicine; Visit Provider Obstetrics & Gynecology
DX: Z32.01 Encounter for pregnancy test, result positive (principal)
CPT/HCPCS: 36415; 84702